=== PATIENT | female | born 1945 | race Caucasian/White ===

== ENCOUNTER 2017-01-29 09:24 | Emergency (ER) | payer MEDICARE, OTHER ==
[~2017-01-29] VITALS: Ht 160 cm; Wt 67.7 kg
[~2017-01-29 09:24] MED LIST: ASPI-1085 PO; ATOR20TA59 PO; CALC-141 PO; CHOL200024 PO; CYCL-83 PO; FISH1CAP28 PO; GABA-190 PO; ISOS30TA53 PO; LEVO75TA10 PO; MULT-806 PO; NAPR220T PO; NITR0.4T39 SL; OMEP20CA10 PO; RANO500T3 PO; TRAM50TA4 PO; TRAZ-170 PO; VITA1TAB15 PO; [UNRECOGNIZED DRUG - CODE]; [UNRECOGNIZED DRUG - CODE] PO
[2017-01-29 09:25] VITALS: Ht 160 cm; Wt 67.7 kg
--- OUTSIDE RECORDS SUMMARY | 2017-01-29 09:27 | XMS REPORT | Continuity of Care Document ---
Author Author [facility] Organization [facility] Address Unknown Phone Unavailable Support Name Relationship Address Phone [place] [address] VESNA STEVENS JR Next Of Kin [address] [place] [address] CP Insurance Providers Payer Name Policy Number Subscriber Name Relationship Medicare/Other Insurance [id number] Gladys Stevens 17 Self Advance Directives Directive Response Recorded Date/Time Advanced Directives Type None 11/14/14 6:28pm Problems Medical Problems Problem Onset Date Status Hand contusion Unknown Active Medications Medication Dose Route Sig Days/Qty Instructions Order Date Discontinued Date Status Calcium 1 Tab PO DAILY 01/14/10 01/23/11 Discontinued Multivitamins 1 Tab PO DAILY 01/14/10 01/23/11 Discontinued Diclofenac Sodium 1 Tab PO TWICE A DAY 01/14/10 01/23/11 Discontinued Cyclobenzaprine Hcl 1 Tab PO THREE TIMES A DAY 01/14/10 01/23/11 Discontinued Lovastatin 1 Tab PO DAILY 01/14/10 01/23/11 Discontinued Gabapentin 1 Tab PO FOUR TIMES DAILY 01/14/10 01/23/11 Discontinued Tizanidine Hcl 1 Tab PO THREE TIMES A DAY 01/14/10 01/23/11 Discontinued Trazodone Hcl 2 Tab PO BEDTIME 01/14/10 01/23/11 Discontinued Cholecalciferol 1 Tab PO DAILY 01/14/10 01/23/11 Discontinued Gabapentin 1 Cap PO FOUR TIMES DAILY 01/23/11 Active Cyclobenzaprine Hcl 10 Mg PO THREE TIMES A DAY 01/23/11 Active Tizanidine Hcl 1 Tab PO THREE TIMES A DAY 01/23/11 Active Multivitamins 1 Tab PO DAILY 01/23/11 Active Calcium Carbonate/Vitamin D3 1 Tab PO DAILY 01/23/11 Active Fish Oil/[place]-3 Fatty Acids 1 Cap PO DAILY 01/23/11 Active Omeprazole 20 Mg PO DAILY 90 Qty 11/14/14 Active Levothyroxine Sodium 75 Mcg PO DAILY 90 Qty 11/14/14 Active Trazodone HCl 2 Tab PO BEDTIME 180 Qty 11/14/14 Active Ranolazine 1 Tab PO TWICE A DAY 180 Qty 11/14/14 Active Zinc 10 Mg PO DAILY 11/14/14 Active Potassium Gluconate 595 Mg PO DAILY 11/14/14 Active Vitamin B Comp W-C 1 Tab PO DAILY 11/14/14 Active Tramadol HCl 1 Tab PO NEEDED 60 Qty 11/14/14 Active Social History Social History Problem Response Recorded Date/Time Tobacco Usage none 11/14/2014 6:52pm Query Response Start Date Stop Date Smoking Status Never smoker Hospital Discharge Instructions No hospital discharge instructions. Plan of Care No plan of care. Functional Status Query Response Date Recorded Physical Hygiene Self November 14, 2014 6:37pm Disabilities None November 14, 2014 6:37pm Devices Used None November 14, 2014 6:37pm Dressing Self November 14, 2014 6:37pm Ambulation Self November 14, 2014 6:37pm Diet Self November 14, 2014 6:37pm Mental Status Alert Oriented November 14, 2014 6:37pm Disabilities None November 14, 2014 6:37pm Devices Used None November 14, 2014 6:37pm Physical Hygiene Self November 14, 2014 6:37pm Dressing Self November 14, 2014 6:37pm Ambulation Self November 14, 2014 6:37pm Diet Self November 14, 2014 6:37pm Allergies, Adverse Reactions, Alerts Allergen Type Severity Reaction Status Last Updated meperidine HCl Allergy Unknown VOMITING Active 11/14/14 oxycodone HCl Allergy Severe HIVES Active 11/14/14 propoxyphene napsylate Allergy Severe HIVES Active 11/14/14 Acetaminophen Allergy Severe HIVES Active 11/14/14 Immunizations Name Given Type Hx Influenza Vaccination Y Jul Historical Hx Tetanus, Diptheria, Pertussis Y 2YRS AGO PT REPORTS Historical Hx Influenza Vaccination Y Jul Historical Hx Tetanus, Diptheria, Pertussis Y 2YRS AGO PT REPORTS Historical Vital Signs Acute Vital Signs Vital Response Date/Time Temperature (Fahrenheit) 97.8 deg F (96.8 - 99.1) Temperature (Calculated Celsius) 36.50279 degrees C (36.0 - 37.3) Pulse Rate (adult) 70 bpm (60 - 100) O2 Sat by Pulse Oximetry 95 % (90 - 100) Blood Pressure 154/81 mm Hg Height 5 ft 3 in Weight 146 lb Body Mass Index 26.0 kg/m^2 Results Test Source Date Result Interp. Ref. Range Comments Alanine Aminotransferase (ALT/SGPT) January 14, 2010 7:30pm 445 U/L H 9- 52 Albumin January 14, 2010 7:30pm 4.38 G/DL N 3.5-5.0 Albumin/Globulin Ratio January 14, 2010 7:30pm 1.1 RATIO N 1.1-2.2 Alkaline Phosphatase January 14, 2010 7:30pm 179 U/L H 38-126 Anion Gap January 23, 2011 4:23am 11.7 MEQ/L N 5-15 Aspartate Amino Transf (AST/SGOT) January 14, 2010 7:30pm 889 U/L H 14-36 BUN/Creatinine Ratio January 23, 2011 4:23am 19 RATIO N 6-26 Basophils # (Auto) January 23, 2011 4:23am 0.2 T/MM3 N 0-0.2 Basophils (%) (Auto) January 23, 2011 4:23am 1.4 % N 0-2 Blood Urea Nitrogen January 23, 2011 4:23am 15.3 MG/DL N 7-17 Calcium Level January 23, 2011 4:23am 10.3 MG/DL H 8.4-10.2 Calculated Osmolality January 23, 2011 4:23am 282 MOSM/KG H 261-280 Carbon Dioxide Level January 23, 2011 4:23am 26 MEQ/L N 22-30 Chloride Level January 23, 2011 4:23am 108 MEQ/L H 98-107 Creatinine January 23, 2011 4:23am 0.8 MG/DL N 0.7-1.2 Eosinophils # (Auto) January 23, 2011 4:23am 0.4 T/MM3 N 0-0.5 Eosinophils (%) (Auto) January 23, 2011 4:23am 3.1 % N 0-4 Globulin January 14, 2010 7:30pm 4.1 G/DL H 2.4-3.6 Glucose Level January 23, 2011 4:23am 141 MG/DL H 65-110 Group A Streptococcus Screen January 23, 2011 4:35am Negative - Strep culture confirmation to follow Hematocrit January 23, 2011 4:23am 38.4 % N 36-46 Hemoglobin January 23, 2011 4:23am 13.0 GM/DL N 12-16 Influenza Type A Antigen January 23, 2011 4:23am Negative - Negative for Flu A protein antigen. Assay sensitivity isbetween 65-83%. A negative result does not exclude influenza virus infection. "Influenza FA" may be ordered if clinical presentation warrants confirmatory testing. Influenza Type B Antigen January 23, 2011 4:23am Negative - Negative for Flu B protein antigen. Assay sensitivity isbetween 65-83%. A negative result does not exclude influenza virus infection. "Influenza FA" may be ordered if clinical presentation warrants confirmatory testing. Lymphocytes # (Auto) January 23, 2011 4:23am 2.9 T/MM3 N 1-4.8 Lymphocytes (%) (Auto) January 23, 2011 4:23am 25.1 % N 23-45 Mean Corpuscular Hemoglobin January 23, 2011 4:23am 30.8 UUG N 26-34 Mean Corpuscular Hemoglobin Concent January 23, 2011 4:23am 33.9 GM/DL N 31-37 Mean Corpuscular Volume January 23, 2011 4:23am 91.0 UM3 N 80-100 Mean Platelet Volume January 23, 2011 4:23am 9.6 UM3 N 7.4-10.4 Monocytes # (Auto) January 23, 2011 4:23am 1.1 T/MM3 H 0-0.8 Monocytes (%) (Auto) January 23, 2011 4:23am 9.3 % H 0-9.0 Neutrophils # (Auto) January 23, 2011 4:23am 7.0 T/MM3 N 1.8-7.7 Neutrophils (%) (Auto) January 23, 2011 4:23am 61.1 % N 33-66 Platelet Count January 23, 2011 4:23am 247 T/MM3 N 130-400 Potassium Level January 23, 2011 4:23am 4.0 MEQ/L N 3.6-5 RDW Standard Deviation January 23, 2011 4:23am 39.6 FL N 36.9-50.2 Red Blood Count January 23, 2011 4:23am 4.22 M/MM3 N 4.00-5.20 Sodium Level January 23, 2011 4:23am 145 MEQ/L H 134-144 Total Bilirubin January 14, 2010 7:30pm 0.68 MG/DL N 0.20-1.30 Total Protein January 14, 2010 7:30pm 8.5 G/DL H 6.3-8.2 White Blood Count January 23, 2011 4:23am 11.5 T/MM3 H 4.5-11.0 Glomerular Filtration Rate Calc January 23, 2011 4:23am 72 - Blood Culture Blood January 23, 2011 4:23am NO GROWTH AFTER 5 DAYS Group A Streptococcus Culture Throat January 23, 2011 4:44am Procedures No known history of procedures. Encounters Encounter Location Date/Time Departed Emergency Room [facility] 11/14/14 6:52pm Recent Diagnosis
--- OUTSIDE RECORDS SUMMARY | 2017-01-29 09:27 | XMS REPORT | Continuity of Care Document ---
Author Author [facility] Organization [facility] Address Unknown Phone Unavailable Allergies Active Description Code Type Severity Reaction Onset Reported/Identified Relationship to Patient Clinical Status Yes DARVOCET-N 32650 2 Skin Rashes/Hives 08/01/2016 Yes DEMEROL HCL 45110 2 Nausea 08/01/2016 Yes PERCOCET 38784 2 Skin Rashes/Hives 08/01/2016 Medications Medication Packaging Start Date Stop Date Route Dosage Sig MIDAZOLAM 2MG/2ML INJ VL 08/01/2016 08/01/2017 IV ASDIR methylPREDNISolone ACETATE 80MG/1ML INJ VL 08/01/20162016 IT ASDIR fentaNYL 100 MCG/2ML INJ AMP 08/01/2016 08/01/2017 IV ASDIR MIDAZOLAM 2MG/2ML INJ VL 08/18/2016 08/18/2017 IV PRN fentaNYL 100 MCG/2ML INJ AMP 08/18/2016 08/18/2017 IV PRN MIDAZOLAM 2MG/2ML INJ VL 08/18/2016 08/18/2016 IV ONCE methylPREDNISolone ACETATE 80MG/1ML INJ VL 08/18/20162015 IM ONCE fentaNYL 100 MCG/2ML INJ AMP 08/18/2016 08/18/2016 IV ONCE methylPREDNISolone ACETATE 80MG/1ML INJ VL 08/18/20162016 IT ASDIR Problems Date Dx Coded Attending Type Code Diagnosis Diagnosed By 08/01/2016 DENISE MCFADDEN DF M54.16 Radiculopathy, lumbar region 08/18/2016 DENISE MCFADDEN DF M54.16 Radiculopathy, lumbar region Procedures Results Encounters ACCT No. Visit Date/Time Discharge Status Pt. Type Provider Facility Loc./Unit Complaint [id number] 08/18/2016 13:32:00 08/18/2016 14: 35:00 DIS Outpatient DENISE MCFADDEN [facility] PAIN lumbar radiculopathy. [id number] 08/01/2016 09:43:00 08/01/2016 11: 22:00 DIS Outpatient DENISE MCFADDEN [facility] NO KNOWN INJURY 08/01/16 RM, lumbar radiculopathy.
--- OUTSIDE RECORDS SUMMARY | 2017-01-29 09:28 | XMS REPORT | Continuity of Care Document ---
Author Author [facility] Organization [facility] Address Unknown Phone Unavailable Support Name Relationship Address Phone SAMIRA ZARAGOZA MD Caregiver [address] [place] [address] [address] [place] [address] Unavailable VINICIUS TSANG DO Caregiver [address] [place] [address] Unavailable VESNA MATTHEWS JR Next Of Kin [address] [place], [place] [id number] CP Insurance Providers Guarantor Gladys Matthews Tylor Address [address] [place] [address] CP Email DENIED NO TO PT PORT Payer Medicare Policy Number [id number] Subscriber's Name MatthewsGladys huitron Relationship 18 Self Payer [facility] Policy Number [id number] Subscriber's Name Gladys Matthews A Relationship 18 Self Group Number [id number] Advance Directives Directive Response Recorded Date/Time Ordered Resuscitation Status Full Code 12/16/16 9:50am DPOA for Healthcare Only No 12/16/16 12:14pm Living Will No 12/16/16 12:14pm Problems Active Problems Medical Problem Onset Date Status Hand contusion Unknown Acute Knee pain, left Unknown Acute Past Problems Medical Problem Onset Date Bronchitis Unknown Medications Current Home Medications Medication Dose Units Route Directions Days Qty Instructions Start Date Aspirin (Aspirin Ec) 81 Mg Tablet. 81 Mg Oral Daily 30 Days 30 Tablet 12/16/16 Atorvastatin Calcium 20 Mg Tablet 1 Tab Oral Bedtime 12/15/16 Calcium Carbonate/Vitamin D3 (Calcium 500 + D Tablet) 1 Tab Tablet 1 Tab Oral Daily 01/23/11 Cholecalciferol (Vitamin D3) (Vitamin D-3) 2,000 Unit Tablet 1 Tab Oral Daily 12/15/16 Cyclobenzaprine Hcl (Flexeril) 10 Mg Tablet 10 Mg Oral Three Times A Day 01/23/11 Fish Oil/Wever-3 Fatty Acids (Wever 3 Fish Oil 1,000 Mg Cap) 1 Cap Capsule 1 Cap Oral Daily 01/23/11 Gabapentin (Neurontin) 300 Mg Capsule 1 Cap Oral Four Times Daily 01/23/11 Isosorbide Dinitrate 30 Mg Tablet 1 Tab Oral Daily 12/15/16 Levothyroxine Sodium 75 Mcg Tablet 75 Mcg Oral Daily 90 11/14/14 Multivit With Calcium,Iron,Min (Women's Daily Formula) 1 Each Tablet 12/16/16 Multivitamins (Multivitamin) 1 Tab Tablet 1 Tab Oral Daily Naproxen Sodium (Naproxen 220MG) 220 Mg Tablet 220 Mg Oral Twice Daily With Meals 12/16/16 Nitroglycerin 0.4 Mg Tab.subl 0.4 Mg Sublingual Daily as needed for Chest Tightness 12/15/16 Omeprazole 20 Mg Capsule.dr 20 Mg Oral Daily 90 11/14/14 Ranolazine (Ranexa) 500 Mg Tab.er.12h 1 Tab Oral Daily 180 Tizanidine Hcl (Zanaflex) 4 Mg Tablet 1 Tab Oral Bedtime 01/23/11 Tramadol Hcl 50 Mg Tablet 1 Tab Oral As Needed 60 11/14/14 Trazodone Hcl 50 Mg Tablet 2 Tab Oral Bedtime 180 11/14/14 Vitamin B Comp W-C (Total B With C) 1 Tab Tablet 1 Tab Oral Daily 11/14/14 Past Home Medications Medication Directions Ordered Status Calcium 500 Mg Tablet, 1 Tab Oral Daily 01/14/10 Discontinued Cholecalciferol (Vitamin D) 1,000 Unit Tablet, 1 Tab Oral Daily 01/14/10 Discontinued Cyclobenzaprine Hcl (Flexeril) 10 Mg Tablet, 1 Tab Oral Three Times A Day 11/25 Discontinued Diclofenac Sodium 75 Mg Tablet.dr, 1 Tab Oral Twice A Day 01/14/10 Discontinued Gabapentin (Neurontin) 300 Mg Capsule, 1 Tab Oral Four Times Daily 01/14/10 Discontinued Lovastatin 40 Mg Tablet, 1 Tab Oral Daily 01/14/10 Discontinued Multivitamins ([place]) 1 Tab Tablet, 1 Tab Oral Daily 01/14/10 Discontinued Tizanidine Hcl 4 Mg Tablet, 1 Tab Oral Three Times A Day 01/14/10 Discontinued Trazodone Hcl 50 Mg Tablet, 2 Tab Oral Bedtime 01/14/10 Discontinued Social History Social History Problem Response Recorded Date/Time Onset Date Status Reason for Hospitalization heart cath 12/16/2016 4:29pm Not Applicable Not Applicable Chewing Tobacco Status No 12/15/2016 1:37pm Not Applicable Not Applicable Hx Substance Use No 12/15/2016 1:37pm Not Applicable Not Applicable Hx Alcohol Use No 12/15/2016 1:37pm Not Applicable Not Applicable Has the pt used tobacco in the last 12 months No 12/15/2016 1:37pm Not Applicable Not Applicable Tobacco Usage none 11/14/2014 6:52pm Not Applicable Not Applicable Query Response Start Date Stop Date Smoking Status Never smoker Hospital Discharge Instructions Instructions: Care Instructions: I was in the hospital because (patient own words): PATIENT STATES, "TO HAVE A HEART CATH DONE" Discharge Diet: Resume heart healthy diet Discharge Activity: Limit activity for 2 days. No lifting more than 10 pounds, no pushing or pulling for 1 week. Follow Up Appointments: Follow up with Dr. Zaragoza on:12/30/16 at 11:30 Pending Lab / Results: No Pending Lab Patient Instructions: Do not drive, operate machinery or drink alcohol for 2 days. Expected Signs/Symptoms: bruising and tenderness at site Notify Physician If: Site is bleeding, abnormal drainage, increased pain or fever of 101.5 or more. During Business Hours:: Please call the physician's office at [phone] After Business Hours:: Please call [phone] and have the annealing furnace operator page the physician. Pain Management/Treatment: OTC pain meds as needed Wound/Incision Care: Keep site clean and dry. No tub baths or swimming for 1 week. You may shower. Condition at time of discharge: Good Plan of Care Discharge Date 12/16/16 7:05pm Instructions/Education Provided [facility] Heart Cath Trans Rad Prescriptions See Medication Section Functional Status Query Response Date Recorded Mobility Status Ambulatory December 16, 2016 12:15pm Assistive Devices None December 16, 2016 12:15pm Activity Limitations Fatigue Shortness of breath Pain December 16, 2016 12:15pm Feeding Ability Independent December 16, 2016 12:15pm Toileting Ability Independent December 16, 2016 12:15pm Grooming Ability Independent December 16, 2016 12:15pm Dressing Ability Independent December 16, 2016 12:15pm Driving Ability Independent December 16, 2016 12:15pm Housework Ability Independent December 16, 2016 12:15pm Meal Preparation Ability Independent December 16, 2016 12:15pm Stair Climbing Ability Independent December 16, 2016 12:15pm Ability to complete ADL's impeded by No change December 16, 2016 12:15pm Cognitive/Perceptual Impairments Impaired vision Impaired hearing December 16, 2016 12:15pm Visual Assistive Devices Glasses With patient December 16, 2016 12:15pm Preferred Method of Learning Reading Video/TV Pictures December 16, 2016 12:15pm Allergies, Adverse Reactions, Alerts Allergen Type Severity Reaction Status Last Updated meperidine HCl Allergy Unknown VOMITING Active 10/17/16 oxycodone HCl Allergy Severe HIVES Active 10/17/16 propoxyphene napsylate Allergy Severe HIVES Active 10/17/16 Acetaminophen Allergy Severe HIVES Active 10/17/16 Immunizations Query Response on File Recorded Date/Time Hx Influenza Vaccination Y AUG 2016 12/15/16 1:37pm Hx Pneumococcal Vaccination Y UP TO DATE 12/15/16 1:37pm Hx Tetanus, Diptheria, Pertussis Y 2YRS AGO PT REPORTS 11/14/14 6:37pm Hx Influenza Vaccination Y AUG 2016 12/15/16 1:37pm Hx Tetanus, Diptheria, Pertussis Y 2YRS AGO PT REPORTS 11/14/14 6:37pm Influenza Vaccine Hx fall 201512/16/16 12:17pm Vital Signs Acute Vital Signs Vital Response Date/Time Temperature (Fahrenheit) 97.9 deg F (96.8 - 99.1) 12/16/2016 4:00pm Temperature (Calculated Celsius) 36.34762 degrees C (36.0 - 37.3) 12/16/2016 4:00pm Temperature Source Oral 12/16/2016 4:00pm Pulse Rate (adult) 77 bpm (60 - 100) 12/16/2016 6:45pm Respiratory Rate 34 breaths/min (10 - 20) 12/16/2016 6:45pm O2 Sat by Pulse Oximetry 96 % (90 - 100) 12/16/2016 6:45pm Oxygen Delivery Method Room Air 12/16/2016 6:45pm Oxygen Delivery Method Room Air 12/16/2016 12:25pm Blood Pressure 137/72 mm Hg 12/16/2016 6:45pm Blood Pressure Source Automatic Cuff 12/16/2016 6:45pm Height (Feet) 5 feet 12/16/2016 12:13pm Height (Inches) 3.00 inches 12/16/2016 12:13pm Weight (Kilograms) 64.800 kg 12/16/2016 12:13pm Body Mass Index (BMI) 25.3 12/16/2016 12:13pm Results Laboratory Results Test Name Result Units Flags Reference Collection Date/Time Result Date/ Time Comments White Blood Count 5.9 T/MM3 4.5-11.0 12/16/2016 12:00pm 12/16/2016 12: 25pm Red Blood Count 4.29 M/MM3 4.00-5.20 12/16/2016 12:00pm 12/16/2016 12: 25pm Hemoglobin 13.4 GM/DL 12-16 12/16/2016 12:00pm 12/16/2016 12:25pm Hematocrit 39.7 % 36-46 12/16/2016 12:00pm 12/16/2016 12:25pm Mean Corpuscular Volume 92.5 UM3 80-100 12/16/2016 12:00pm 12/16/2016 12:25pm Mean Corpuscular Hemoglobin 31.2 UUG 26-34 12/16/2016 12:00pm 2016 12:25pm Mean Corpuscular Hemoglobin Concent 33.8 GM/DL 31-37 12/16/2016 12:00pm 12/16/2016 12:25pm RDW Standard Deviation 41.9 FL 36.9-50.2 12/16/2016 12:00pm 12/16/2016 12:25pm Platelet Count 136 T/MM3 130-400 12/16/2016 12:00pm 12/16/2016 12:25pm Mean Platelet Volume 10.5 UM3 9.4-12.4 12/16/2016 12:00pm 12/16/2016 12 :25pm Neutrophils (%) (Auto) 42.0 % 33-66 12/16/2016 12:00pm 12/16/2016 12: 25pm Lymphocytes (%) (Auto) 46.0 % H 23-45 12/16/2016 12:00pm 12/16/2016 12: 25pm Monocytes (%) (Auto) 7.1 % 0-9.0 12/16/2016 12:00pm 12/16/2016 12:25pm Eosinophils (%) (Auto) 2.9 % 0-4 12/16/2016 12:00pm 12/16/2016 12:25pm Basophils (%) (Auto) 2.0 % 0-2 12/16/2016 12:00pm 12/16/2016 12:25pm Immature Granulocyte % (Auto) 0.0 % 0.0-0.5 12/16/2016 12:00pm 2016 12:25pm Absolute Neutrophils (auto) 2.5 T/MM3 1.8-7.7 12/16/2016 12:00pm 2016 12:25pm Absolute Lymphocytes (auto) 2.7 T/MM3 1-4.8 12/16/2016 12:00pm 2016 12:25pm Absolute Monocytes (auto) 0.4 T/MM3 0-0.8 12/16/2016 12:00pm 2016 12:25pm Absolute Eosinophils (auto) 0.2 T/MM3 0-0.5 12/16/2016 12:00pm 2016 12:25pm Absolute Basophils (auto) 0.1 T/MM3 0-0.2 12/16/2016 12:00pm 2016 12:25pm Absolute Immature Granulocyte (auto 0.00 T/MM3 0.00-0.03 12/16/2016 12: 00pm 12/16/2016 12:25pm Icterus Index < 2 0-7 12/16/2016 12:00pm 12/16/2016 12:31pm Chemistry Specimen Hemolysis < 15 0-25 12/16/2016 12:00pm 12/16/2016 12:31pm 0-25: Specimen Exhibited No Hemolysis. Turbidity < 20 0-20 12/16/2016 12:00pm 12/16/2016 12:31pm Sodium Level 142 MEQ/L 134-144 12/16/2016 12:00pm 12/16/2016 12:31pm Potassium Level 3.5 MEQ/L L 3.6-5 12/16/2016 12:00pm 12/16/2016 12:31pm Chloride Level 105 MEQ/L 98-107 12/16/2016 12:00pm 12/16/2016 12:31pm Carbon Dioxide Level 28 MEQ/L 22-30 12/16/2016 12:00pm 12/16/2016 12: 31pm Anion Gap 9 MEQ/L 5-15 12/16/2016 12:00pm 12/16/2016 12:31pm Blood Urea Nitrogen 14.0 MG/DL 7-17 12/16/2016 12:00pm 12/16/2016 12: 31pm Creatinine 0.8 MG/DL 0.7-1.2 12/16/2016 12:00pm 12/16/2016 12:31pm BUN/Creatinine Ratio 18 RATIO 6-26 12/16/2016 12:00pm 12/16/2016 12: 31pm Glomerular Filtration Rate Calc 71 12/16/2016 12:00pm 12/16/2016 12 :31pm Glucose Level 146 MG/DL H 65-110 12/16/2016 12:00pm 12/16/2016 12:31pm Calculated Osmolality 277 MOSM/KG 261-280 12/16/2016 12:00pm 2016 12:31pm Calcium Level 10.2 MG/DL 8.4-10.2 12/16/2016 12:00pm 12/16/2016 12: 31pm Procedures No known history of procedures. Encounters Encounter Location Arrival/Admit Date Discharge/Depart Date Attending Provider Departed Clinic [facility] 12/16/16 11:34am 12/16/16 7:05pm SAMIRA ZARAGOZA MD Departed Emergency Room [facility] 10/17/16 2:58pm 10/17/16 3: 30pm SALINAS CALLEJAS APRN
--- NOTE | 2017-01-29 09:41 | ERPDOC ---
Departure Disposition Decision Date: Jan 29, 2017 Disposition Decision Time: 10:47 Disposition: 01 DISCHARGED HOME, SELF-CARE Impression Impression Impression: Primary Impression: Traumatic hematoma of forehead Encounter type: initial encounter Qualified Codes: S00.83XA - Contusion of other part of head, initial encounter Additional Impression: Fall on same level Encounter type: initial encounter Qualified Codes: W18.30XA - Fall on same level, unspecified, initial encounter Severity: Moderate Condition: Stable Seen By: Physician only Referrals: VINICIUS TSANG DO (Family) Follow-up for reevaluation early next week Patient Instructions: Fall Prevention (ED) Problems/Meds/Labs Reviewed?: Yes Medications reviewed and manag: Yes Follow up care ordered?: Yes Mental Status: Alert, Oriented HPI - Fall/Injury General Chief Complaint: Fall Stated Complaint: FALL Time Seen by Provider: 09:32 Source: patient, family Exam Limitations: no limitations HPI - Fall/Injury Initial Comments Patient is a 72-year-old female, was walking down a flight of stairs this morning when she missed a step striking her forehead on the edge of the door and then fell to the ground. Patient unknown loss of consciousness later there for a few minutes before she got up and went inside. Patient started complaining of headache so called EMS brought patient to the ER for evaluation. On arrival patient complaining of 9/10 headache Occurred At: home Onset: Rapid Allergies: Coded Allergies: acetaminophen (Verified Allergy, Severe, HIVES, 01/29/17) oxycodone HCl (Verified Allergy, Severe, HIVES, 01/29/17) propoxyphene napsylate (Verified Allergy, Severe, HIVES, 01/29/17) meperidine HCl (Verified Allergy, Unknown, VOMITING, 01/29/17) Past History Past Medical History Metabolic: hypercholesterolemia, hypertension, hypothyroidism Respiratory: pneumonia, pulmonary embolus Neurological: fibromyalgia Musculoskeletal: back pain Surgical History General: appendix, gallbladder, tonsils Reproductive/: hysterectomy Family History Family PMH: FOUND: [place], diabetes, hypertension Vaccines Hx Influenza Vaccination: Yes (AUG 2016) Hx Pneumococcal Vaccination: Yes (UP TO DATE) Hx Tetanus, Diptheria, Pertuss: Yes (2YRS AGO PT REPORTS) Social History Substance Use Type: does not use Alcohol Intake: none Sexuality: male partner Review of Systems Constitutional Constitutional: DENIES: appetite decrease, chills, dizziness, fever, weakness Eyes Vision: DENIES: double vision, loss of visual yusuf ENMT Sinuses: DENIES: congestion, rhinorrhea Mouth/Throat: DENIES: scratchy throat, sore throat Cardiovascular Cardiac: DENIES: chest pain, dyspnea on exertion Pulmonary Respiratory: DENIES: cough, dyspnea, sputum, tachypnea GI Upper Abdomen: DENIES: nausea, pain, vomiting Lower Abdomen: DENIES: constipation, diarrhea, pain Musculoskeletal General: DENIES: cramps, pain, weakness Integumentary Skin: DENIES: color change, itching, rash Neurological General: headache, DENIES: change in strength Endocrine Endocrine: DENIES: heat/cold intolerance Physical Exam General General Nourishment: well nourished, well developed General Body Habitus: well groomed Vitals and Pain Weight: Kilograms: Height (feet): 5 Height (inches): 3.00 Triage Pain Scale: RN VS reviewed by Provider: Yes Eyes (brief) Eyes Brief: found: EOMI, PERRL, trauma (patient with large hematoma the left forehead) ENMT (brief) ENMT Brief: FOUND: mucosa moist, normal dentition, NOT FOUND: nasal erythema Neck (brief) Neck: NOT FOUND: adenopathy, spasm, tenderness Respiratory (brief) Respiratory: FOUND: clear all yusuf, equal bilaterally, NOT FOUND: rales, wheezes Cardiovascular (brief) Cardiac: FOUND: regular rate, regular rhythm Capillary Refill: <2 sec Abdomen (brief) Abdominal Brief: FOUND: bowel normo active x4, soft, NOT FOUND: tender Lymphatic (brief) Lymphatic Brief: NOT FOUND: adenopathy Musculoskeletal (brief) Musculoskeletal Brief: NOT FOUND: spasm, tenderness Integumentary (brief) Integumentary Brief: FOUND: dry, pink, warm, NOT FOUND: rash Neurologic Mental Status: FOUND: alert, oriented GCS Adult : GCS Eye Opening: (4)Spontaneous GCS Verbal: (5)Oriented GCS Motor: (6)Obeys Commands GCS Total: 15 Cranial Nerves: FOUND: other (cranial nerve II-12 intact) Motor : Motor Side: bilateral Motor Location: biceps, triceps, wrist, finger extensors, finger flexors, quadriceps, hamstring, foot extension, foot flexion, spinner hydraulic strength Motor Degree: 5 Sensation: FOUND: soft touch intact x4 ext DTR's : DTR Side: bilateral DTR Location: Biceps, Patellar DTR Grade: 3+ Psychiatric (brief) Psychiatric Brief: FOUND: alert, oriented Differential Diagnoses Considering: Concussion, Contusion, Epidural Hematoma, Fracture, Subdural Hematoma Progress Results/Orders Orders Procedure Category Date Status Time Ct Head W/O Contrast CT 01/29/17 Resulted 09:32 Icepack EDM 01/29/17 Transmitted 09:32 Ketorolac (Toradol) PHA 01/29/17 Complete 10:30 Iv Lock (Ed Only) EDM 01/29/17 Transmitted 10:27 Ketorolac (Toradol) PHA 01/29/17 Complete 10:30 Medications Current ED Medications Ketorolac Tromethamine (Toradol) 30 mg O ONCE IM ; Start 01/29/17 at 10:30; Stop 01/29/17 at 10:30; Status DC Ketorolac Tromethamine (Toradol) 15 mg O ONCE IV Last administered on t 10:46; Start 01/29/17 at 10:30; Stop 01/29/17 at 10:31; Status DC CT CT : CT: Head no contrast Interpretation: Normal, Reviewed Written Report DARIEL MONTEZ MD Jan 29, 2017 09:41
--- NOTE | 2017-01-29 09:46 | NUR ---
RETURNED FROM CT
[2017-01-29] MEDS ORDERED: CALC1TAB PO (09:48)
[2017-01-29] MEDS ORDERED: CHOL100018 PO (09:48)
[2017-01-29] MEDS ORDERED: OMEP40CA52 PO (09:48)
--- NOTE | 2017-01-29 09:50 | NUR ---
IV/LAB 18 GAUGE IV TO RIGHT WRIST
[2017-01-29] MEDS ORDERED: POTA99TA21 PO (09:51)
--- OUTSIDE RECORDS SUMMARY | 2017-01-29 10:08 | XMS REPORT | Continuity of Care Document ---
Author Author [facility] Organization [facility] Address Unknown Phone Unavailable Support Name Relationship Address Phone [place] [address] VESNA STEVENS JR Next Of Kin [address] [place] [address] CP Insurance Providers Payer Name Policy Number Subscriber Name Relationship Medicare/Other Insurance [id number] Gladys Stevens 17 Self Advance Directives Directive [...] 1 Tab PO DAILY 01/23/11 Active Fish Oil/[place]-3 Fatty Acids 1 Cap PO DAILY 01/23/11 [...] F (96.8 - 99.1) Temperature (Calculated Celsius) 36.35909 degrees C (36.0 - 37.3) Pulse Rate [...] Encounters Encounter Location Date/Time Departed Emergency Room [facility] 11/14/14 6:52pm Recent Diagnosis
--- OUTSIDE RECORDS SUMMARY | 2017-01-29 10:08 | XMS REPORT | Continuity of Care Document ---
Author Author [facility] Organization [facility] Address Unknown Phone Unavailable Allergies Active Description Code Type Severity Reaction Onset Reported/Identified Relationship to Patient Clinical Status Yes DARVOCET-N 60814 2 Skin Rashes/Hives 08/01/2016 [place] DEMEROL HCL 87750 2 Nausea 08/01/2016 Yes PERCOCET 48093 2 Skin Rashes/Hives 08/01/2016 Medications Medication Packaging [...] Status Pt. Type Provider Facility Loc./Unit Complaint [id number] 08/18/2016 13:32:00 08/18/2016 14: 35:00 DIS Outpatient DENISE MCFADDEN [facility] PAIN lumbar radiculopathy. [id number] 08/01/2016 09:43:00 08/01/2016 11: 22:00 DIS Outpatient DENISE MCFADDEN [facility] PAIN NO KNOWN INJURY 08/01/16 RM, lumbar radiculopathy.
--- NOTE | 2017-01-29 10:20 | NUR ---
DR. MONTEZ IN TO TALK WITH PATIENT
--- NOTE | 2017-01-29 10:24 | DI ---
Indication: ITS.REASON: fall large hematoma above the left eye CT HEAD W/O CONTRAST: Comparison: None Technique: Nonenhanced axial imaging provided with dose reduction imaging technology with brain and bone window evaluation. Findings: Patient shows a large cephalhematoma over the left for head but no corresponding bony skull fracture or suggestion image cranial hemorrhage noted. Mild generalized atrophic changes were seen intracranially without additional acute findings. No midline shift or mass is seen. Patient showed clear mastoids. Minimal thickening in the nasal turbinates noted. Impression: 1. Large left forehead cephalhematoma without accompanying intracranial hemorrhage or bony skull fracture. 2. Age compatible intracranial atrophic changes without additional acute findings. 3. Findings were directly called to ordering ER clinician when study provided. .
[2017-01-29] MEDS ORDERED: KETOROLAC 30mg/ml INJECTION IM ONE (10:30)
[2017-01-29] MEDS ORDERED: KETOROLAC 30mg/ml INJECTION IV ONE (10:30)
--- NOTE | 2017-01-29 11:11 | NUR ---
ASSISTED INTO WHEELCHAIR AWAITING DISCHARGE PAPERWORK
[2017-01-29 11:22] VITALS: BP 174/80; PULSE 83; RESP 20; TEMP 97.1; O2SAT 92
--- NOTE | 2017-01-29 11:22 | NUR ---
DISMISS INSTRUCTIONS REVIEWED AND GIVEN TO PATIENT VERBALIZED UNDERSTANDING PATIENT STABLE, TAKEN TO EXIT BY WHEELCHAIR AND LEAVES WITH FEMALE FRIEND
== END 2017-01-29 11:22 | disposition home or self-care (01) ==
LOC: ED 09:24
DX: S00.83XA Contusion of other part of head, initial encounter (principal); W10.8XXA Fall (on) (from) other stairs and steps, initial encounter; Y93.01 Activity, walking, marching and hiking; Y92.008 Other place in unspecified non-institutional (private) residence as the place of occurrence of the external cause; Y99.8 Other external cause status
CPT/HCPCS: 70450; 96374; 99284; J1885

== ENCOUNTER 2017-04-26 17:14 | Inpatient (IN) ==
--- NOTE | 2017-04-26 17:53 | Emergency Department Report ---
General Adult HPI - General Chief complaint: Back Pain/Injury Stated complaint: disoriented, back pain Time Seen by Provider: 04/26/17 17:25 Source: patient Mode of arrival: ambulatory Limitations: no limitations - History of Present Illness HPI narrative: She had back surgery 2 days ago to have some bone spurs taken off of her lumbar vertebrae. Was discharged home from the hospital yesterday. Her daughter states that today she has been checking on her and she has not been making sense with her speech. She has seemed confused. She has not had a fever or any other symptoms. She had fallen and hit her head the day before surgery and had a hematoma. Has been taking Trazodone for the pain at home as she had already been on this. O2 sats had been low per EMS and was placed on O2. She is not on O2 at home usually. She is taking Bactrim BID. Her states that she was diagnosed with a UTI a few days before the surgery and had been prescribed Cipro which she did not start because of the upcoming surgery. He thought that they had checked it at the hospital and the urine was clean. But he does report that the Bactrim is for the UTI. Location: head, back Radiation: non-radiation Severity: moderate Quality: sharp Consistency: constant Relieving factors: none Exacerbating factors: none Associated symptoms: shortness of breath Treatments prior to arrival: none - Related Data Home Medications Medication Instructions Recorded Confirmed Gabapentin [Neurontin] 300 mg PO BID PRN #0 01/23/11 04/26/17 Tizanidine HCl 4 mg PO HS #0 01/23/11 04/26/17 Levothyroxine Sodium 75 mcg PO DAILY #0 11/14/14 04/26/17 Trazodone HCl 100 mg PO HS #0 11/14/14 04/26/17 Atorvastatin Calcium 20 mg PO HS #0 12/15/16 04/26/17 Naproxen Sodium [All Day Pain 220 mg PO BIDWM #0 tab 12/16/16 04/26/17 Relief] Calcium Carbonate/Vitamin D3 1 tab PO DAILY #0 01/29/17 04/26/17 [Caltrate 600 Plus D3 Tablet] Cholecalciferol [Vitamin D-3] 1,000 unit PO BID #0 01/29/17 04/26/17 Omeprazole 40 mg PO BID #0 01/29/17 04/26/17 Potassium Gluconate [Potassium] 99 mg PO DAILY #0 01/29/17 04/26/17 Cyclobenzaprine [Flexeril] 10 mg PO BID 04/26/17 04/26/17 Folic Acid/Mv,Iron,Min [One Daily 1 tab PO DAILY 04/26/17 04/26/17 For Women Tablet] [place]-3/Dha/Epa/Fish Oil [Fish Oil 1,000 mg PO BID 04/26/17 04/26/17 1,000 mg Softgel] Sulfamethoxazole/Trimethoprim 1 tab PO BID 04/26/17 04/26/17 [Bactrim Ds Tablet] Vitamin B Complex [Balanced B-50] 1 each PO DAILY 04/26/17 04/26/17 Allergies Allergy/AdvReac Type Severity Reaction Status Date / Time acetaminophen Allergy Severe HIVES Verified 01/29/17 10:19 oxycodone HCl Allergy Severe HIVES Uncoded 01/29/17 10:19 propoxyphene napsylate Allergy Severe HIVES Uncoded 01/29/17 10:19 meperidine HCl Allergy Unknown VOMITING Uncoded 01/29/17 10:19 Review of Systems Constitutional: Denies: fever, chills, weakness ENT: Denies: ear pain, throat pain, congestion Cardiovascular: Reports: dyspnea on exertion. Denies: chest pain, palpitations Respiratory: Reports: cough, dyspnea. Denies: wheezes Gastrointestinal: Denies: abdominal pain, nausea, vomiting, diarrhea, constipation Integumentary: Denies: rash Neurological: Denies: headache, weakness, numbness, paresthesias [facility] Patient Stated Medical History Transient Ischemic Attacks ( Yes TIA) Hearing Loss Yes Other HEENT Yes: WEARS GLASSES Heart Murmur Yes Asthma Yes Bronchitis Yes Gastroesophageal Reflux Yes Disease Osteoarthritis Yes Anesthesia Reactions Yes: VOMITING Surgical History: Spur removal from vertebrae-04/24/17 - Social History Smoking status: Never smoker Substance use type: does not use Alcohol intake frequency: does not drink Physical Exam - Limitations Limitations: no limitations - General General appearance: alert, in no apparent distress - Normal Exams: Neck:: Full range of motion, without adenopathy, JVD, bruits or thyromegaly Cardiovascular:: Regular rate and rhythm, without murmur or gallop, Pulses 2+ all extremities, capillary refill, <2 seconds all extremities Abdomen:: Bowel sounds positive, soft, non-tender, non-distended, no hepatosplenomegaly, masses or bruits noted Lymphatic:: No lymphadenopathy, or lymphedema noted Integumentary:: No rashes, hives, or bruising noted Neurological:: Patient is alert, and oriented Psychiatric:: Patient exhibits, appropriate attention, emotion and affect - Respiratory Respiratory exam: Present: other (crackles in the right lower lobe) - Back Exam Back exam: Present: normal inspection. Absent: tenderness, rashes - Skin Skin exam: Present: other (There is a small bandage on the back over the spine that is clean dry and intact. No surrounding tissue erythema or swelling or tenderness. ) Course Vital Signs Temperature 100.4 F 04/26/17 17:15 Pulse Rate 98 04/26/17 17:15 Respiratory Rate 18 04/26/17 17:15 Blood Pressure 174/75 H 04/26/17 17:15 Pulse Oximetry 92 04/26/17 17:15 Temperature 100.1 F 04/26/17 19:06 Pulse Rate 97 04/26/17 20:16 Respiratory Rate 18 04/26/17 17:15 Blood Pressure 175/70 H 04/26/17 20:16 Pulse Oximetry 93 04/26/17 20:16 Medical Decision Making - [facility] Narrative Medical decision making narrative: CBC, BMP, lactate, procalcitonin, UA are normal today. Blood cultures are pending. Chest xray is clear. Noted that she does have a temp of 100.4 but vitals are stable otherwise. She does remain 90-92% on RA. She does continue to be confused, was telling the nurse about some mittens in the room but there are no mittens. Did talk with Dr Mckeon who is covering for Dr Mack. He does not feel that the confusion is related to the surgery itself. He feels that it may be due to the anesthesia or medications but no concern for spinal abscess or meningitis specifically. Did talk with Dr Hernandes regarding negative work up but continued confusion. Will accept for admission at this time. CT of head and lumbar spine today are negative. - Lab Data Lab results reviewed: Yes: I reviewed the patient's lab results. Result diagrams: 04/26/17 17:57 04/26/17 17:57 Lab Results 04/26/17 04/26/17 04/26/17 Range/Units 17:57 17:57 18:48 WBC 11.0 (4.5-11.0) T/MM3 RBC 4.30 (4.00-5.20) M/MM3 Hgb 13.5 (12-16) GM/DL Hct 39.3 (36-46) % MCV 91.4 (80-100) UM3 MCH 31.4 (26-34) UUG MCHC 34.4 (31-37) GM/DL RDW Std Deviation 40.9 (36.9-50.2) FL Plt Count 139 (130-400) T/MM3 MPV 10.2 (9.4-12.4) UM3 Immature Gran % (Auto) 0.1 (0.0-0.5) % Neut % (Auto) 64.5 (33-66) % Lymph % (Auto) 24.4 (23-45) % [place] % (Auto) 10.5 H (0-9.0) % Eos % (Auto) 0.1 (0-4) % Baso % (Auto) 0.4 (0-2) % Neut # 7.1 (1.8-7.7) T/MM3 Lymph # 2.7 (1-4.8) T/MM3 [place] # 1.2 H (0-0.8) T/MM3 Eos # 0.0 (0-0.5) T/MM3 Baso # 0.0 (0-0.2) T/MM3 Abs Immat Gran (auto) 0.01 (0.00-0.03) T/MM3 Turbidity < 20.0 (0-20) Sodium 141 (134-144) MEQ/L Potassium 3.9 (3.6-5) MEQ/L Chloride 101 (98-107) MEQ/L Carbon Dioxide 27 (22-30) MEQ/L Anion Gap 13 (5-15) MEQ/L BUN 11.0 (7-17) MG/DL Creatinine 0.7 (0.7-1.2) MG/DL GFR Calculation 82 BUN/Creatinine Ratio 16 (6-26) RATIO Glucose 163 H (65-110) MG/DL Calculated Osmolality 274 (261-280) MOSM/KG Calcium 9.9 (8.4-10.2) MG/DL Total Bilirubin 1.10 (0.20-1.30) MG/DL Icterus Index < 2.0 (0-7) AST 45 H (14-36) U/L ALT 48 (9-52) U/L Alkaline Phosphatase 140 H (38-126) U/L Troponin I < 0.012 (0-0.12) ng/ml Total Protein 8.0 (6.3-8.2) G/DL Albumin 4.4 (3.5-5.0) G/DL Globulin 3.6 (2.4-3.6) G/DL Albumin/Globulin Ratio 1.2 (1.1-2.2) RATIO Plasma Lactate (0.6-2.2) MMOL/L Procalcitonin NG/ML Specimen Hemolysis < 15.0 (0-25) Ur Collection Type Urine, clean catch Urine Color Yellow (YELLOW) Urine Clarity Clear Urine pH 7.0 (5.0-8.0) Ur Specific [place] <=1.005 L (1.015-1.025) Urine Protein Negative (NEGATIVE) Urine Glucose (UA) Negative (NEGATIVE) Urine Ketones Negative (NEGATIVE) Urine Occult Blood Negative (NEGATIVE) Urine Nitrate Negative (NEGATIVE) Urine Bilirubin Negative (NEGATIVE) Urine Urobilinogen 0.2 (NORMAL) EU/DL Ur Leukocyte Esterase Negative (NEGATIVE) Urinalysis Comment Microscopic not ind. 04/26/17 04/26/17 Range/Units 18:54 18:54 WBC (4.5-11.0) T/MM3 RBC (4.00-5.20) M/MM3 Hgb (12-16) GM/DL Hct (36-46) % MCV (80-100) UM3 MCH (26-34) UUG MCHC (31-37) GM/DL RDW Std Deviation (36.9-50.2) FL Plt Count (130-400) T/MM3 MPV (9.4-12.4) UM3 Immature Gran % (Auto) (0.0-0.5) % Neut % (Auto) (33-66) % Lymph % (Auto) (23-45) % [place] % (Auto) (0-9.0) % Eos % (Auto) (0-4) % Baso % (Auto) (0-2) % Neut # (1.8-7.7) T/MM3 Lymph # (1-4.8) T/MM3 [place] # (0-0.8) T/MM3 Eos # (0-0.5) T/MM3 Baso # (0-0.2) T/MM3 Abs Immat Gran (auto) (0.00-0.03) T/MM3 Turbidity (0-20) Sodium (134-144) MEQ/L Potassium (3.6-5) MEQ/L Chloride (98-107) MEQ/L Carbon Dioxide (22-30) MEQ/L Anion Gap (5-15) MEQ/L BUN (7-17) MG/DL Creatinine (0.7-1.2) MG/DL GFR Calculation BUN/Creatinine Ratio (6-26) RATIO Glucose (65-110) MG/DL Calculated Osmolality (261-280) MOSM/KG Calcium (8.4-10.2) MG/DL Total Bilirubin (0.20-1.30) MG/DL Icterus Index (0-7) AST (14-36) U/L ALT (9-52) U/L Alkaline Phosphatase (38-126) U/L Troponin I (0-0.12) ng/ml Total Protein (6.3-8.2) G/DL Albumin (3.5-5.0) G/DL Globulin (2.4-3.6) G/DL Albumin/Globulin Ratio (1.1-2.2) RATIO Plasma Lactate 1.2 (0.6-2.2) MMOL/L Procalcitonin 0.05 NG/ML Specimen Hemolysis (0-25) Ur Collection Type Urine Color (YELLOW) Urine Clarity Urine pH (5.0-8.0) Ur Specific [place] (1.015-1.025) Urine Protein (NEGATIVE) Urine Glucose (UA) (NEGATIVE) Urine Ketones (NEGATIVE) Urine Occult Blood (NEGATIVE) Urine Nitrate (NEGATIVE) Urine Bilirubin (NEGATIVE) Urine Urobilinogen (NORMAL) EU/DL Ur Leukocyte Esterase (NEGATIVE) Urinalysis Comment - Radiology Data Ct of head was negative. Ct of lumbar spine does not reveal any abscess Disposition Clinical Impression: Encephalopathy Disposition: 02 To OBS [facility] [place] Condition: Stable Prescriptions: No Action Gabapentin [Neurontin] 300 mg PO BID PRN #0 PRN Reason: PRN ORDERS Tizanidine HCl 4 mg PO HS #0 Atorvastatin Calcium 20 mg PO HS #0 Calcium Carbonate/Vitamin D3 [Caltrate 600 Plus D3 Tablet] 1 tab PO DAILY #0 Cholecalciferol [Vitamin D-3] 1,000 unit PO BID #0 Omeprazole 40 mg PO BID #0 Cyclobenzaprine [Flexeril] 10 mg PO BID Folic Acid/Mv,Iron,Min [One Daily For Women Tablet] 1 tab PO DAILY [place]-3/Dha/Epa/Fish Oil [Fish Oil 1,000 mg Softgel] 1,000 mg PO BID Trazodone HCl 100 mg PO HS #0 Levothyroxine Sodium 75 mcg PO DAILY #0 Naproxen Sodium [All Day Pain Relief] 220 mg PO BIDWM #0 tab Potassium Gluconate [Potassium] 99 mg PO DAILY #0 Vitamin B Complex [Balanced B-50] 1 each PO DAILY Sulfamethoxazole/Trimethoprim [Bactrim Ds Tablet] 1 tab PO BID Referrals: Reginaldo Art DO [Family Provider] - Time of Disposition: 21:41 - Seen By: midlevel
[2017-04-26] MEDS ORDERED: IOHEXOL 300mg/ml 75ml INJECTION ONE (19:45)
[2017-04-26] MEDS ORDERED: NS 100 ML ONE (19:46)
[2017-04-26] MEDS ORDERED: SALINE FLUSH 10ml SYRINGE ONE (19:46)
[2017-04-26] MEDS ORDERED: MORPHINE SULFATE 4 MG SYRINGE IVP ONE (20:41)
[2017-04-26] MEDS: SALINE FLUSH 10ml SYRINGE IVF PRN ×2 (20:43→23:54)
[2017-04-26] MEDS ORDERED: ONDANSETRON 4 MG/2 ML INJECTION IVP PRN (21:15)
[2017-04-26] MEDS ORDERED: INSULIN ASPART 100unit/ml INJECTION SQ PRN (21:23)
--- NOTE | 2017-04-26 23:38 | History & Physical Report ---
History of Present Illness Date: 04/26/17 Chief complaint: confused HPI: This is a 74 y/o female who had a lumbar laminectomy done on Thursday and discharged on Thursday by Dr. Mack. The patient did fine all day Thursday and about 4pm today was noticed by her daughter to be confused. The patient had a low grade fever. The patient had no URI sx. Mild headache from where she fell last week and hit her head. The patient was started on Bactrim post op (apparently the pt had been Rx Bactrim pre op for UTI and didn't start until after surgery). The patient also started on ultram which she took two tabs this am. The patient berna no neck pain, no chest pain, no cough or congestion, no abdomen pain, no nausea or vomiting, no change in bowel or bladder. The patient had no focal neuro complaints. In the ED the patient had a relative unremarkable workup with neg CT head and lab. LA was normal. UA was normal. CXR was normal. Neurosurgery (Dr. Lorenzo) was contacted and was not impressed that anything related to surgery could be contributing to the patient's symptoms. It was recommended by myself that a CT of Lumbar spine be obtained before we admit to address possibility of complications from surgery This was unremarkable. At this time the patient will be admitted for further assessment of her altered mental status. Review of Systems Review of systems: as per HPI. a 10 point ROS was otherwise negative. - Integumentary/Breasts Integumentary: Absent: rash PFSH Lupus, recurrent UTI, TIA, asthma, dyslipidemia, GERD, FMS, diverticulsisi, CKD 3 Surgical History: Spur removal from vertebrae-04/24/17 - Social History Smoking status: Never smoker Substance use type: does not use Alcohol intake: never Alcohol intake frequency: does not drink Household members: spouse service: No Current occupational status: disabled Current occupational exposures/hazards: No Previous occupational history: worked @ [employer] Does patient use chewing tobacco?: No Current residence: Apartment/Private Home Medications Home Medications Medication Instructions Recorded Confirmed Type Gabapentin [Neurontin] 300 mg PO BID PRN #0 01/23/11 04/26/17 History Tizanidine HCl 4 mg PO HS #0 01/23/11 04/26/17 History Levothyroxine Sodium 75 mcg PO DAILY #0 11/14/14 04/26/17 History Trazodone HCl 100 mg PO HS #0 11/14/14 04/26/17 History Atorvastatin Calcium 20 mg PO HS #0 12/15/16 04/26/17 History Naproxen Sodium [All Day Pain 220 mg PO BIDWM #0 tab 12/16/16 04/26/17 History Relief] Calcium Carbonate/Vitamin D3 1 tab PO DAILY #0 01/29/17 04/26/17 History [Caltrate 600 Plus D3 Tablet] Cholecalciferol [Vitamin D-3] 1,000 unit PO BID #0 01/29/17 04/26/17 History Omeprazole 40 mg PO BID #0 01/29/17 04/26/17 History Potassium Gluconate [Potassium] 99 mg PO DAILY #0 01/29/17 04/26/17 History Cyclobenzaprine [Flexeril] 10 mg PO BID 04/26/17 04/26/17 History Folic Acid/Mv,Iron,Min [One Daily 1 tab PO DAILY 04/26/17 04/26/17 History For Women Tablet] [employer]-3/Dha/Epa/Fish Oil [Fish Oil 1,000 mg PO BID 04/26/17 04/26/17 History 1,000 mg Softgel] Sulfamethoxazole/Trimethoprim 1 tab PO BID 04/26/17 04/26/17 History [Bactrim Ds Tablet] Vitamin B Complex [Balanced B-50] 1 each PO DAILY 04/26/17 04/26/17 History Allergies Allergy/AdvReac Type Severity Reaction Status Date / Time acetaminophen Allergy Severe HIVES Verified 01/29/17 10:19 oxycodone HCl Allergy Severe HIVES Uncoded 01/29/17 10:19 propoxyphene napsylate Allergy Severe HIVES Uncoded 01/29/17 10:19 meperidine HCl Allergy Unknown VOMITING Uncoded 01/29/17 10:19 Exam Vital Signs: Temp Pulse Resp BP Pulse Ox 98.6 F 98 18 139/69 91 04/26/17 23:22 04/26/17 23:22 04/26/17 23:22 04/26/17 23:22 04/26/17 23:22 Telemetry Rhythm: Sinus Rhythm Height: 1.6 m Weight: 74.8 kg - Constitutional Present: mild distress, well nourished, well developed, obese, cooperative, somnolent. Absent: obtunded - Routine HEENT Exam Head: Present: normocephalic, scalp tenderness (patient with tenderness to sup frontal regions). Absent: atraumatic (patient with right orbid ecchymosis) Eye: Present: EOMI, PERRL, conjunctivae pink, periorbital ecchymosis, periorbital swelling. Absent: conjunctival icterus, scleral injection, periorbital tenderness ENT: Present: mucous membranes dry - Routine Neck Exam Present: supple, full ROM, trachea midline. Absent: JVD, swelling - Routine Respiratory Exam Present: CTA bilaterally. Absent: prolonged expiratory phase, rales, respiratory distress, rhonchi, wheezes, crackles - Routine Cardiovascular Exam Present: RRR, murmur (3/6 SHAHEED), S3 - Routine Abdominal Exam Present: soft, normoactive bowel sounds, non tender. Absent: tenderness, non distended, distended, firm, rigid - Routine Extremities Exam Present: full ROM. Absent: edema, non tender - Routine Back/Spine/Pelvis Exam Back/Spine: Present: vertebral tenderness (patient with surgical scar appreciated. ) - Routine Skin Exam Present: intact - Routine Neurological Exam Present: oriented X3, CN II-XII intact, altered mental status (patient slow to respond to questions. ). Absent: alert, sensory deficit, motor deficit - Routine Psychiatric Exam Absent: normal affect (flat affect) Results - Labs CBC & Chem 7: 04/26/17 17:57 04/26/17 17:57 Labs: reviewed and reasuring - ECG Data Tracing #1 sinus, non ischemic, normal Assessment and Plan (1) Metabolic encephalopathy Current visit: Yes Status: Acute 04/26/17 23:57 Pt presents with increased confusion post operative. DDX: medication (only new medication is bactrim and ultam that can be determined tonight). either one can contribute to confusion. infecton (low grade fever, source not determined, CT lumbar spine was neg for post op concern, UA clean, CXR clean, no obvious sources identified. with confusion cannot exclude the possibility of HEEL COMPRESSOR infection, discussion with neurosurgeon excluded the possibility of dural injury with HEEL COMPRESSOR and her examination without nuchal sx or headache would make HEEL COMPRESSOR infection less likely. If temperature trend increases will need to consider LP. Note not an great prospect given recent lumbar procedure. CVA, if not clear easily will need to consider MRI to further eval for occult CVA. Note will place on tele with neuro checks tonight), For now will not start antibiotics Will repeat labs in am. reassess at that time. Neuro examination is completely without findings. (2) S/P lumbar laminectomy Current visit: Yes Status: Acute 04/27/17 00:46 as noted above neurosurgeon not concerned. cT reasuring of lumbar spine. continue current post op instructions per patient. (3) GERD (gastroesophageal reflux disease) Current visit: Yes Status: Acute 04/27/17 00:47 PPI DVT Prophylaxis: SCD's GI Prophylaxis: Protonix Resuscitation Status: Full Code Hospital Course Summary Disclaimer: The visit summary below is not to be considered part of the above Progress Note.
[2017-04-26] MEDS: NS 1,000 ML IV SCH (23:53)
[2017-04-27] MEDS: HYDROMORPHONE 2 MG/ML INJECTION IVP PRN ×6 (00:45→18:39)
[2017-04-27] MEDS: OMEPRAZOLE 20 MG CAPSULE PO SCH ×2 (06:31→20:26)
[2017-04-27] MEDS: LEVOTHYROXINE 75 MCG TABLET PO SCH (06:31)
--- NOTE | 2017-04-27 07:15 | XRay Report ---
Indication: confusion PROCEDURE: XR chest 1V: Encounter: Initial Comparison: April 14, 2017 FINDINGS: The lungs are clear. There is no abnormal airspace opacity, pleural effusion or pneumothorax identified. The heart size, pulmonary vasculature and mediastinum are within normal limits. No significant skeletal abnormality is seen. IMPRESSION: No acute cardiopulmonary abnormality. .
--- NOTE | 2017-04-27 07:15 | CT Scan Report ---
Indication: confusion, hit head PROCEDURE: CT head/brain wo con: Encounter: Initial Comparison: January 29, 2017 Technique: Axial CT images through the head were performed without contrast. Iterative Reconstruction dose reducing technique was utilized. FINDINGS: Mild generalized atrophy. The ventricles are of normal size, shape, and contour for the patient's age. There are scattered areas of low attenuation in the white matter which most likely represent changes from chronic microvascular ischemia. The brainstem, cerebellum, and cerebral hemispheres otherwise have a normal morphology and CT attenuation. There is no evidence of midline displacement. No hemorrhage, signs of acute territorial stroke, mass effect, mass lesions, or edema is evident. The visualized portions of the skull base, midface, and calvarium demonstrate no abnormality. The paranasal sinuses are well aerated and free of significant disease. The tympanic and mastoid cavities appear normal. IMPRESSION: No acute intracranial abnormality or hemorrhage. There is a preliminary report by [facility]. .
[2017-04-27] MEDS: SALINE FLUSH 10ml SYRINGE IVF PRN ×4 (08:37→18:38)
--- NOTE | 2017-04-27 09:09 | CT Scan Report ---
Indication: confusion, recent surgery PROCEDURE: CT lumbar spine w con: Encounter: Initial Comparison: Lumbar spine MRI 01/02/2017 Technique: CT imaging of the lumbar spine was performed after administration of 75 mL Omnipaque 300 intravenous contrast. Axial, coronal and sagittal reformatted images were also obtained. 3-D reconstructed images were also performed. Automated Exposure Control and Iterative Reconstruction dose reducing techniques were utilized. Findings: No acute fracture. Postoperative changes of L4-L5 laminectomy. Postoperative gas and edema within the operative bed. No space-occupying fluid collection appreciated. The normal lumbar lordosis is maintained. No significant spondylolisthesis. No suspicious lytic or blastic osseous lesions. Multilevel degenerative disc disease and facet arthropathy, not significantly changed from the recent MRI resulting in multilevel neural foraminal narrowing, better characterized on the prior MRI, and no significant spinal canal stenosis appreciated by CT. No acute paravertebral soft tissue abnormality. No acute abnormality of the visualized intra-abdominal/pelvic organs. Cholecystectomy, aortoiliac atherosclerotic calcifications, and colonic diverticulosis incidentally noted. Impression: 1. Postoperative changes of recent L4-L5 laminectomy with associated postoperative gas and edema within the operative bed however no space-occupying fluid collection appreciated. 2. No other acute osseous abnormality of the lumbar spine. 3. Multilevel degenerative spondylosis, better characterized on recent MRI. The above report concurs with the preliminary report provided by [facility] at 9:03 PM. .
[2017-04-27] MEDS: NS 1,000 ML IV SCH ×2 (09:49→19:53)
--- NOTE | 2017-04-27 19:26 | Internal Med Progress Note ---
Internal Medicine Subjective Patient seen and examined. Family at the bedside. Questions answered. Chart labs and available radiographs reviewed from this weekend. Gladys appears to be quite confused. What I'm seeing today is not all her usual, this is more consistent with delirium. Of concern is that family indicates that she went home Thursday walking and talking appearing to be doing well. She was then given the task of administering her own medications and Thursday she had an abrupt change with delirium. She was then seen and examined in the emergency department and assessed and later admitted with mental status change following a laminectomy. Prior to her surgical procedure she had been on gabapentin 300 mg 3 times a day. She is now not on that medication and the abrupt withdrawal of gabapentin can cause such delirium this is why most suspect. Her pain medication was also changed from tramadol which she has taken for some time to hydromorphone. Also her muscle relaxer was changed to a more sedating muscle relaxer Flexeril. These last 2 medications I have changed back to what she had been taking prior to her operation. Exam Vital Signs: Temp Pulse Resp BP Pulse Ox 98.8 F 85 18 139/66 94 04/27/17 16:00 04/27/17 16:00 04/27/17 16:00 04/27/17 16:00 04/27/17 16:00 Telemetry Rhythm: Sinus Rhythm Height: 5 ft 3 in Weight: 64 kg Body Mass Index: 24.6 - Constitutional Present: mild distress, well nourished, well developed, obese, cooperative, somnolent. Absent: obtunded Comments: Confused and anxious - Routine HEENT Exam Head: Present: normocephalic. Absent: atraumatic (Quan to her forehead from a recent fall) Eye: Present: EOMI, PERRL. Absent: conjunctival icterus, scleral injection, conjunctivae pink ENT: Present: mucous membranes moist - Routine Neck Exam Present: supple, full ROM. Absent: carotid bruit, lymphadenopathy, thyromegaly - Routine Chest/Breast/Axilla Exam Chest wall: Absent: tenderness Axillae: Absent: lymphadenopathy - Routine Respiratory Exam Absent: accessory muscle use, prolonged expiratory phase, rales, respiratory distress, wheezes, crackles - Routine Cardiovascular Exam Present: RRR. Absent: S3, S4 - Routine Abdominal Exam Present: soft, normoactive bowel sounds, non distended, non tender. Absent: rebound, guarding, rigid, organomegaly - Routine Extremities Exam Present: pulses intact. Absent: cyanosis, clubbing, edema - Routine Neurological Exam Present: alert, altered mental status. Absent: oriented X3 - Routine Psychiatric Exam Present: cooperative, anxious, agitated. Absent: good insight, good judgment Internal Medicine Results - Labs CBC & Chem 7: 04/27/17 04:52 04/27/17 04:52 Progress Note-A&P (1) Delirium Status: Acute Assessment and plan: Recent abrupt withdrawal of gabapentin Current Visit: Yes (2) S/P lumbar laminectomy Status: Acute Current Visit: Yes (3) GERD (gastroesophageal reflux disease) Status: Chronic Current Visit: Yes - Time Spent With Patient Total time spent is greater than 50% in coordination of care (as documented) at patient's floor/unit and/or counseling patient: 25 - 35 minutes Sepsis Assessment - Evaluation Sepsis screening result: No Definite Risk - Focused Exam Vital Signs Temp Pulse Resp BP Pulse Ox 04/27/17 16:00 98.8 F 85 18 139/66 94 Respiratory exam: Present: CTA bilaterally. Absent: prolonged expiratory phase , rales, respiratory distress, rhonchi, wheezes, crackles Cardiovascular exam: Present: RRR, murmur (3/6 SHAHEED), S3 Hospital Course Summary Disclaimer: The visit summary below is not to be considered part of the above Progress Note. Hospital Course: 04/27/17 19:29 I have stopped the fingerstick blood sugars as well as a diabetic diet which were unnecessary. I also stopped her hydromorphone and restarted her gabapentin and tramadol. I suspect her mental status change with delirium is secondary to the abrupt withdrawal of gabapentin I will also start Robaxin as it is a less sedating muscle relaxer
[2017-04-27] MEDS: TRAMADOL 50 MG TABLET PO SCH (21:44)
[2017-04-27] MEDS: METHOCARBAMOL 750 MG TABLET PO SCH (21:54)
[2017-04-27] MEDS: GABAPENTIN 300 MG CAPSULE PO SCH (21:54)
[2017-04-28] MEDS: OMEPRAZOLE 20 MG CAPSULE PO SCH ×2 (05:53→20:46)
[2017-04-28] MEDS: LEVOTHYROXINE 75 MCG TABLET PO SCH (05:53)
[2017-04-28] MEDS: NS 1,000 ML IV SCH ×2 (05:53→16:43)
[2017-04-28] MEDS: TRAMADOL 50 MG TABLET PO SCH ×4 (08:34→20:47)
[2017-04-28] MEDS: GABAPENTIN 300 MG CAPSULE PO SCH ×3 (08:34→20:46)
[2017-04-28] MEDS: METHOCARBAMOL 750 MG TABLET PO SCH ×3 (08:34→20:47)
[2017-04-28] MEDS ORDERED: TRAMADOL 50 MG TABLET PO ONE (13:00)
--- NOTE | 2017-04-28 17:58 | Internal Med Progress Note ---
Internal Medicine Subjective Patient seen and examined. Family at the bedside. Questions answered. Patient is much improved and her mentation after restarting her gabapentin. Her is at the bedside, states that she became much better about 2:30 this morning. She is not eating well and complains of postoperative back pain. I will have physical therapy see her tomorrow and consider discharge to home. Exam Vital Signs: Temp Pulse Resp BP Pulse Ox 99 F 82 24 170/70 H 92 04/28/17 08:00 04/28/17 08:00 04/28/17 08:00 04/28/17 08:00 04/28/17 08:00 Telemetry Rhythm: Sinus Rhythm Height: 5 ft 3 in Weight: 64.3 kg Body Mass Index: 24.6 - Constitutional Present: no acute distress, well nourished, well developed, cooperative, somnolent. Absent: obtunded - Routine HEENT Exam Head: Present: normocephalic. Absent: atraumatic (bruised forehead) Eye: Present: EOMI, PERRL. Absent: conjunctival icterus, scleral injection, conjunctivae pink ENT: Present: mucous membranes moist, oropharynx clear, nares patent - Routine Neck Exam Present: supple, full ROM. Absent: JVD, carotid bruit, lymphadenopathy, thyromegaly - Routine Chest/Breast/Axilla Exam Chest wall: Absent: tenderness Axillae: Absent: lymphadenopathy - Routine Respiratory Exam Absent: accessory muscle use, rhonchi, stridor, wheezes, crackles - Routine Cardiovascular Exam Present: RRR. Absent: S3, S4 - Routine Abdominal Exam Present: soft, normoactive bowel sounds. Absent: tenderness, rebound, guarding , rigid, organomegaly - Routine Extremities Exam Present: pulses intact. Absent: cyanosis, clubbing, edema, calf tenderness - Routine Skin Exam Present: intact, dry. Absent: cyanosis, erythema, mottling, petechiae, urticaria, jaundice - Routine Neurological Exam Present: oriented X3, CN II-XII intact - Routine Psychiatric Exam Present: cooperative, good insight, good judgment. Absent: normal affect, normal thought process Internal Medicine Results - Labs CBC & Chem 7: 04/28/17 04:15 04/28/17 04:15 Labs: Short CBC 04/28/17 Range/Units 04:15 WBC 10.1 (4.5-11.0) T/MM3 Hgb 12.0 (12-16) GM/DL Hct 35.4 L (36-46) % Plt Count 142 (130-400) T/MM3 BMP 04/28/17 04:15 Sodium 137 Potassium 3.5 L Chloride 104 Carbon Dioxide 23 BUN 10.0 Creatinine 0.7 Glucose 147 H Calcium 9.3 Liver Function 04/28/17 Range/Units 04:15 Total Bilirubin 1.40 H (0.20-1.30) MG/DL AST 34 (14-36) U/L ALT 36 (9-52) U/L Alkaline Phosphatase 124 (38-126) U/L Albumin 3.8 (3.5-5.0) G/DL Progress Note-A&P (1) Delirium Status: Acute Assessment and plan: Improved after restarting gabapentin Current Visit: Yes (2) S/P lumbar laminectomy Status: Acute Current Visit: Yes (3) GERD (gastroesophageal reflux disease) Status: Chronic Current Visit: Yes - Time Spent With Patient Total time spent is greater than 50% in coordination of care (as documented) at patient's floor/unit and/or counseling patient: 25 - 35 minutes Sepsis Assessment - Evaluation Sepsis screening result: No Definite Risk - Focused Exam Vital Signs Temp Pulse Resp BP Pulse Ox 04/28/17 08:00 99 F 82 24 170/70 H 92 Respiratory exam: Present: CTA bilaterally. Absent: prolonged expiratory phase , rales, respiratory distress, rhonchi, wheezes, crackles Cardiovascular exam: Present: RRR, murmur (3/6 SHAHEED), S3 Hospital Course Summary Disclaimer: The visit summary below is not to be considered part of the above Progress Note. Hospital Course: 04/27/17 19:29 I have stopped the fingerstick blood sugars as well as a diabetic diet which were unnecessary. I also stopped her hydromorphone and restarted her gabapentin and tramadol. I suspect her mental status change with delirium is secondary to the abrupt withdrawal of gabapentin I will also start Robaxin as it is a less sedating muscle relaxer 04/28/17 17:58 Gladys looks much improved. We need to have her be seen and evaluated by physical therapy tomorrow. I will give her a fluid bolus tonight as her oral intake has been poor since she got here. I expect possible discharge to home tomorrow.
[2017-04-28] MEDS ORDERED: NS 1,000 ML IV SCH (18:00)
[2017-04-28] MEDS ORDERED: NS 1,000 ML IV ONE (20:20)
[2017-04-29] MEDS: NS 1,000 ML IV SCH (03:53)
[2017-04-29] MEDS: LEVOTHYROXINE 75 MCG TABLET PO SCH (06:00)
[2017-04-29] MEDS: OMEPRAZOLE 20 MG CAPSULE PO SCH (06:00)
[2017-04-29] MEDS: METHOCARBAMOL 750 MG TABLET PO SCH (09:48)
[2017-04-29] MEDS: GABAPENTIN 300 MG CAPSULE PO SCH (09:48)
[2017-04-29] MEDS: TRAMADOL 50 MG TABLET PO SCH ×2 (09:48→13:05)
--- NOTE | 2017-04-29 13:45 | Discharge Summary ---
Discharge Information Date of admission: 04/27/17 14:22 Anticipated date of discharge: 04/29/17 Attending Physician: Reginaldo Art DO Primary care physician: Reginaldo Art DO - Discharge Diagnosis (1) Delirium Status: Acute (2) S/P lumbar laminectomy Status: Acute (3) GERD (gastroesophageal reflux disease) Qualifiers: Esophagitis presence: esophagitis presence not specified Qualified Code(s) : K21.9 - Gastro-esophageal reflux disease without esophagitis Status: Chronic - Laboratory Labs: 04/29/17 08:49 04/29/17 08:49 History of Present Illness HPI: This is a 74 y/o female who had a lumbar laminectomy done on Thursday and discharged on Thursday by Dr. Mack. The patient did fine all day Thursday and about 4pm today was noticed by her daughter to be confused. The patient had a low grade fever. The patient had no URI sx. Mild headache from where she fell last week and hit her head. The patient was started on Bactrim post op (apparently the pt had been Rx Bactrim pre op for UTI and didn't start until after surgery). The patient also started on ultram which she took two tabs this am. The patient berna no neck pain, no chest pain, no cough or congestion, no abdomen pain, no nausea or vomiting, no change in bowel or bladder. The patient had no focal neuro complaints. In the ED the patient had a relative unremarkable workup with neg CT head and lab. LA was normal. UA was normal. CXR was normal. Neurosurgery (Dr. Lorenzo) was contacted and was not impressed that anything related to surgery could be contributing to the patient's symptoms. It was recommended by myself that a CT of Lumbar spine be obtained before we admit to address possibility of complications from surgery This was unremarkable. At this time the patient will be admitted for further assessment of her altered mental status. Hospital Course Hospital course: 04/27/17 19:29 I have stopped the fingerstick blood sugars as well as a diabetic diet which were unnecessary. I also stopped her hydromorphone and restarted her gabapentin and tramadol. I suspect her mental status change with delirium is secondary to the abrupt withdrawal of gabapentin I will also start Robaxin as it is a less sedating muscle relaxer 04/28/17 17:58 Gladys looks much improved. We need to have her be seen and evaluated by physical therapy tomorrow. I will give her a fluid bolus tonight as her oral intake has been poor since she got here. I expect possible discharge to home tomorrow. DVT Prophylaxis: SCD's GI Prophylaxis: Protonix Discharge Plan - Med Rec/Dispo Referrals/Follow Up: Reginaldo Art DO [Family Provider] - 2 Weeks Prescriptions: Continue Gabapentin [Neurontin] 300 mg PO BID PRN #0 PRN Reason: PRN ORDERS Tizanidine HCl 4 mg PO HS #0 Atorvastatin Calcium 20 mg PO HS #0 Calcium Carbonate/Vitamin D3 [Caltrate 600 Plus D3 Tablet] 1 tab PO DAILY #0 Cholecalciferol [Vitamin D-3] 1,000 unit PO BID #0 Omeprazole 40 mg PO BID #0 Cyclobenzaprine [Flexeril] 10 mg PO BID Folic Acid/Mv,Iron,Min [One Daily For Women Tablet] 1 tab PO DAILY [employer]-3/Dha/Epa/Fish Oil [Fish Oil 1,000 mg Softgel] 1,000 mg PO BID Trazodone HCl 100 mg PO HS #0 Levothyroxine Sodium 75 mcg PO DAILY #0 Naproxen Sodium [All Day Pain Relief] 220 mg PO BIDWM #0 tab Potassium Gluconate [Potassium] 99 mg PO DAILY #0 Vitamin B Complex [Balanced B-50] 1 each PO DAILY Sulfamethoxazole/Trimethoprim [Bactrim Ds Tablet] 1 tab PO BID - Disposition 01 Discharged Home, Self-Care
== END 2017-04-29 15:33 | disposition home health service (06) | DRG 72 ==
LOC: ED 17:14 → SRG 17:14 → MED 17:14 → ED 22:50 → SRG 22:50 → UNDODISIN 04-29 15:33
PROVIDERS: ADMIT Emergency Medicine; ATTEND Internal Medicine